=== PATIENT | female | born 1990 | race Caucasian/White ===

== ENCOUNTER 2018-09-16 16:35 | Inpatient (IN) | payer OTHER ==
[2018-09-16] MEDS ORDERED: AMPICILLIN SODIUM 2 GM VIAL ONE (16:56)
[2018-09-16] MEDS ORDERED: OXYTOCIN 30 UNITS in 0.9% NS 30 UNIT/500 ML INFUS.BAG IVPB ONE (16:57)
[2018-09-16] MEDS ORDERED: AMPICILLIN - 2 GM in SODIUM CHLORIDE 100 ML IVPB ONE (17:15)
[2018-09-16] MEDS ORDERED: TUBERCULIN PPD 5 TU/0.1ML SYRINGE (IN PATIENT USE ONLY) ID ONE ×2 (17:54→18:15)
[2018-09-16] MEDS ORDERED: DEXTROSE 5%-LACTATED RINGERS 1,000 ML IV SCH (18:15)
[2018-09-16] MEDS ORDERED: OXYTOCIN 30 UNITS in 0.9% NS 30 UNIT/500 ML INFUS.BAG IVPB SCH (18:15)
[2018-09-16 18:28] VITALS: BMI 30.7
--- NOTE | 2018-09-16 19:41 | HP ---
Past Medical History - Primary Care Physician PCP:: Lety Beltran - Admission Chief Complaint: 28yo P0 @ 40.3 wks with BPP 6/8 in the office, + FM, no LOF, irregular ctx, no VB. History of Present Illness: 1. 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 Weeks Gestation by Dates: 40.1 ...EDC by Dates: 09/15/18 ...EDC by Sono: 09/13/18 - Past Surgical History Past Surgical History: Yes: None Hx Myomectomy: No Hx Transabdominal Cerclage: No - Smoking History Smoking history: Never smoked Have you smoked in the past 12 months: No - Alcohol/Substance Use Hx Alcohol Use: No History of Substance Use: reports: None - Social History History of Recent Travel: No Home Medications - Allergies Allergies/Adverse Reactions: Allergies Allergy/AdvReac Type Severity Reaction Status Date / Time apple Allergy Mild Swelling Verified 05/20/18 19:31 peach Allergy Mild Swelling Verified 05/20/18 19:31 ibuprofen [From Advil] AdvReac Intermediate Swelling Verified 05/20/18 19:30 - Home Medications Home Medications: Ambulatory Orders Vit 108/Iron/Folic AC [ One Tablet] 1 each PO DAILY 05/20/18 Family Disease History - Family Disease History Family History: Unremarkable Review of Systems - Review of Systems Constitutional: reports: No Symptoms Eyes: reports: No Symptoms HENT: reports: No Symptoms Neck: reports: No Symptoms Cardiovascular: reports: No Symptoms Respiratory: reports: No Symptoms Gastrointestinal: reports: No Symptoms Genitourinary: reports: No Symptoms Breasts: reports: No Symptoms Reported Musculoskeletal: reports: No Symptoms Integumentary: reports: No Symptoms Neurological: reports: No Symptoms Endocrine: reports: No Symptoms Hematology/Lymphatic: reports: No Symptoms Psychiatric: reports: No Symptoms Physical Exam - Maternity Vital Signs: Vital Signs Temperature 98.7 F 09/16/18 19:00 Pulse Rate 95 H 09/16/18 19:00 Respiratory Rate 18 09/16/18 19:00 Blood Pressure 110/69 09/16/18 19:00 O2 Sat by Pulse Oximetry (%) Constitutional: Yes: Well Nourished, No Distress, Calm Eyes: Yes: WNL, Conjunctiva Clear, EOM Intact HENT: Yes: WNL, Atraumatic, Normocephalic Neck: Yes: WNL, Supple, Trachea Midline Cardiovascular: Yes: WNL, Regular Rate and Rhythm Lungs: Clear to auscultation Breast(s): Yes: WNL - Abdominal Exam/OB Fundal Height: 38 (EFW 6lb) Number of Fetuses: Single Presentation: Vertex Contractions: Yes Regularity: Irregular Intensity: Mild Monitor Mode: External Heart Rate (range): 130 Heart Rate Location: Midline Category: I Accelerations: Uniform Decelerations: None - Vaginal Exam/OB Vaginal Bleediing: No Speculum Exam: No Dilatation (cm): 3-4 Effacement (%): 50% Amniotic Membrane Status: Intact Presentation: Vertex/Position Station: -3 - Physical Exam Musculoskeletal: Yes: WNL Extremities: Yes: WNL Edema: No Integumentary: Yes: WNL ...Motor Strength: WNL Psychiatric: Yes: WNL, Alert, Oriented Assessment/Plan 28yo P0 @ 40.3wks BPP 6/8 in the office admitted for labor induction. Fetus with Category I tracing and requires no intervention. Patient is not in labor and has favorable cervix. We discussed the treatment options including expectant management awaiting spontaneous labor , Cervidil vs pitocin for labor induction. We discussed the risks and benefits of each option. The patient prefers to proceed with pitocin and monitor labor progress. I explained the risks of failed induction, tacysystole, distress , shoulder dystocia, and/or maternal trauma, hemorrhage, need for section, etc. The pt verbalized her understanding and requested to proceed. Ampicillin for GBS prophylaxis given
[2018-09-16 20:18] LABS: BASO % 0.5 % (0-2.0); EOS % 1.7 % (0-4.5); HEMATOCRIT 35.2 % (32.4-45.2); HEMOGLOBIN 11.6 GM/dL (10.7-15.3); LYMPH % 17.3 % (8-40); MCHC 32.9 g/dl (32.0-36.0); MEAN CELL VOLUME 94.3 fl (80-96); MEAN PLT VOLUME 9.4 fl (7.5-11.1); NEUT % 74.5 % (42.8-82.8); PLATELET COUNT 197 K/MM3 (134-434); RBC 3.73 M/mm3 (3.60-5.2); RDW 14.6 % (11.6-15.6); WHITE BLOOD COUNT 9.8 K/mm3 (4.0-10.0)
[2018-09-16 20:34] LABS: INR 0.94 (0.83-1.09); PROTHROMBIN TIME (PATIENT) 11.1 SEC (9.7-13.0)
[2018-09-16 20:37] LABS: ACTIVATED PTT 28.2 SECONDS (25.2-36.5)
[2018-09-16 20:42] LABS: ANION GAP 9 MMOL/L (8-16); BLOOD UREA NITROGEN 6 mg/dL (7-18); CALCIUM 8.4 mg/dL (8.5-10.1); CHLORIDE 106 mmol/L (98-107); CO2 25 mmol/L (21-32); CREATININE 0.6 mg/dL (0.55-1.3); GLUCOSE,RANDOM 87 mg/dL (74-106); POTASSIUM 4.3 mmol/L (3.5-5.1); SODIUM 140 mmol/L (136-145)
[2018-09-16] MEDS: AMPICILLIN - 1 GM in SODIUM CHLORIDE 100 ML IVPB SCH (21:00)
[2018-09-16] MEDS ORDERED: AMPICILLIN SODIUM 1 GM VIAL ONE (21:01)
[2018-09-16] MEDS ORDERED: FENTANYL/BUPIVACAINE/NS/PF - PCEA - 50 ML DISP.SYRIN EP ONE (21:45)
[2018-09-16] MEDS ORDERED: BUPIVACAINE HCL/PF 0.25% (2.5MG/ML) 10 ML VIAL ONE (21:48)
--- NOTE | 2018-09-16 23:12 | PN ---
Progress Note, Labor Vaginal Exam #1 Labor Exam Date: 09/16/18 Labor Exam Time: 23:00 Heart Rate (range): 150's no decels, + scalp stimulation Dilatation: 4 Effacement (%): 75% Amniotic Membrane Status: Bulging Presentation: Vertex/Position Station: -3 Remarks: ACOM, clear for further labor augmentation
[2018-09-17] MEDS ORDERED: NALOXONE HCL 0.4 MG/ML VIAL IVPUSH PRN (00:35)
[2018-09-17] MEDS ORDERED: FENTANYL/BUPIVACAINE/NS/PF - PCEA - 50 ML DISP.SYRIN EP ONE ×2 (00:35→05:16)
[2018-09-17] MEDS ORDERED: FENTANYL/BUPIVACAINE/NS/PF - PCEA - 50 ML DISP.SYRIN EP SCH (00:45)
[2018-09-17] MEDS: AMPICILLIN - 1 GM in SODIUM CHLORIDE 100 ML IVPB SCH ×3 (01:00→09:00)
[2018-09-17] MEDS ORDERED: AMPICILLIN SODIUM 1 GM VIAL ONE ×3 (01:00→08:49)
--- NOTE | 2018-09-17 04:30 | PN ---
Progress Note, Labor Vaginal Exam #2 Labor Exam Date: 09/17/18 Labor Exam Time: 04:15 Heart Rate (range): 150' moderate varriability Dilatation: 7 Effacement (%): 90% Amniotic Membrane Status: Ruptured Presentation: Vertex/Position Station: -2 Remarks: Adequate labor progress MF status reassuring continue monitoring
[2018-09-17] MEDS ORDERED: ELECTROLYTE-148 SOLN 1,000 ML IV SCH (05:30)
[2018-09-17] MEDS ORDERED: LIDOCAINE HCL 1% PRESERVATIVE FREE - 30ML VIAL ONE (07:43)
[2018-09-17] MEDS ORDERED: OXYTOCIN 20 UNITS in 0.9% NS 20 UNIT/1,000 ML INFUS.BAG IV ONE ×2 (07:43→10:49)
--- NOTE | 2018-09-17 07:51 | PN ---
Progress Note, Labor Vaginal Exam #3 Labor Exam Date: 09/17/18 Labor Exam Time: 07:40 Heart Rate (range): 150's few early decels noted, moderate varriabilit Dilatation: FD Effacement (%): 100 Amniotic Membrane Status: Ruptured Presentation: Vertex/Position Station: 0 Remarks: Patient has no desire to push Pitocin at 18Mu now will await passive head descent MF status reasuring
[2018-09-17] MEDS ORDERED: OXYTOCIN 20 UNITS in 0.9% NS 20 UNIT/1,000 ML INFUS.BAG IV SCH (10:35)
[2018-09-17] MEDS ORDERED: ACETAMINOPHEN 325 MG TABLET (FP) ONE (10:49)
[2018-09-17] MEDS: ACETAMINOPHEN 325 MG TABLET (FP) PO PRN ×3 (11:00→18:48)
[2018-09-17] MEDS ORDERED: METHYLERGONOVINE MALEATE 0.2 MG/1 ML AMP IM PRN (11:04)
[2018-09-17] MEDS ORDERED: IBUPROFEN 600 MG TABLET (FP) PO PRN ×2 (11:04→12:05)
[2018-09-17] MEDS ORDERED: BISACODYL 10 MG SUPP.RECT RC PRN (11:04)
[2018-09-17] MEDS ORDERED: BENZOCAINE 28 GM HEMORRHOIDAL OINTMENT TP PRN (11:04)
[2018-09-17] MEDS ORDERED: WITCH HAZEL 50% (TUCKS) 40 PAD/JAR PAD TP PRN (11:04)
--- NOTE | 2018-09-17 11:11 | PN ---
<Ho Esteban - Last Filed: 09/17/18 11:05> Delivery - Delivery Vaginal Delivery: Spontaneous Type of Anesthesia: Local, Epidural Episiotomy/Laceration: Midline (head on perinium, median episiotmy done , head OP delivered , cord around neck times 2 ,reduced ant and posterior shoulder with no difficulry, baby boy 9/9, third degree laceration , sphincto was approximated with interupted 20 chromic suture, episiotomy in 3 layers , rectal exam negative, good tone. ebl 500cc) Delivery, Single - Feeding Plan Initial Plan: Exclusive throughout hospitalization <Lety Beltran - Last Filed: 09/18/18 14:41> Delivery - Delivery Vaginal Delivery: No Problems, Spontaneous Type of Anesthesia: Local, Epidural Episiotomy/Laceration: Midline Delivery, Single - Stages of Labor Placenta: Yes: Spontaneous - Condition of Shipping Point Inspector/Call Center Nurse Present: No Gender: Female - 1 Minute Total Score: 9 5 Minutes Total Score: 9 Remarks - Remarks Remarks: cord around the neck x 1 Uncomplicated delivery of head and shoulders
[2018-09-17] MEDS ORDERED: D5W-LR W/ 20 UNITS OXYTOCIN 20 UNIT/1,000 ML INFUS.BAG IV SCH (11:15)
[2018-09-17 11:22] LABS: VENOUS PC02 38.7 mmHg (41-51); VENOUS PO2 31.2 mmHg (30-40)
[2018-09-17 11:25] LABS: ARTERIAL BLD GAS O2 SATURATION 46.9 % (95-98); ARTERIAL BLOOD GAS PCO2 48.8 mmHg (35-45)
[2018-09-17 11:32] LABS: VENOUS PH 7.37 (7.31-7.41)
[2018-09-17 11:34] LABS: ARTERIAL BLOOD GAS PO2 24.2 mmHg (80-105)
[2018-09-17] MEDS: oxyCODONE HCL 5 MG TABLET PO PRN ×2 (13:38→18:47)
[2018-09-17] MEDS: BENZOCAINE 20% 57 GM BOTTLE TP PRN (15:23)
[2018-09-17] MEDS: FERROUS SO4 325 MG TABLET (FP) PO SCH (21:44)
[2018-09-18] MEDS: oxyCODONE HCL 5 MG TABLET PO PRN ×4 (00:51→16:50)
[2018-09-18] MEDS: ACETAMINOPHEN 325 MG TABLET (FP) PO PRN ×4 (00:52→16:49)
[2018-09-18 08:10] LABS: BASO % 0.3 % (0-2.0); EOS % 1.2 % (0-4.5); HEMATOCRIT 27.5 % (32.4-45.2); HEMOGLOBIN 9.1 GM/dL (10.7-15.3); MCH 30.8 pg (25.7-33.7); MCHC 33.1 g/dl (32.0-36.0); MEAN PLT VOLUME 8.7 fl (7.5-11.1); MONO % 5.6 % (3.8-10.2); NEUT % 80.9 % (42.8-82.8); PLATELET COUNT 188 K/MM3 (134-434); RBC 2.95 M/mm3 (3.60-5.2); RDW 15.1 % (11.6-15.6); WHITE BLOOD COUNT 13.6 K/mm3 (4.0-10.0)
--- NOTE | 2018-09-18 08:37 | PN ---
Post Progress Note - Subjective Subjective: Patient without acute complaints. She has some perineal pain. Reports tolerating oral intake without nausea or vomiting. Ambulating without dizziness. Denies fevers or chills. Pain well controlled with oral pain medication. Pumping/breast feeding without issue. Passing flatus, no BM. Post Day: 1 Type of Delivery: Vital Signs: Vital Signs Temperature 97.8 F 09/18/18 06:00 Pulse Rate 90 09/18/18 06:00 Respiratory Rate 20 09/18/18 06:00 Blood Pressure 111/68 09/18/18 06:00 O2 Sat by Pulse Oximetry (%) 100 09/17/18 08:45 Breast Exam: Yes: Soft Uterus: Yes: Fundus Firm, Fundus below umbilicus, Non-tender Abdomen/GI: Yes: Abdomen soft, Passing flatus, Tolerating PO Lochia: Yes: Rubra Lochia, amount: Small Extremities: Yes: Calves non-tender, Edema (trace) Perineum: Yes: Episiotomy (repair intact) Activity: Ambulating - Labs Labs: CBC WBC 13.6 K/mm3 (4.0-10.0) H 09/18/18 07:42 RBC 2.95 M/mm3 (3.60-5.2) L 09/18/18 07:42 Hgb 9.1 GM/dL (10.7-15.3) L 09/18/18 07:42 Hct 27.5 % (32.4-45.2) L D 09/18/18 07:42 MCV 93.0 fl (80-96) 09/18/18 07:42 MCH 30.8 pg (25.7-33.7) 09/18/18 07:42 MCHC 33.1 g/dl (32.0-36.0) 09/18/18 07:42 RDW 15.1 % (11.6-15.6) 09/18/18 07:42 Plt Count 188 K/MM3 (134-434) 09/18/18 07:42 MPV 8.7 fl (7.5-11.1) 09/18/18 07:42 Absolute Neuts (auto) 11.0 K/mm3 (1.5-8.0) H 09/18/18 07:42 Neutrophils % 80.9 % (42.8-82.8) 09/18/18 07:42 Lymphocytes % 12.0 % (8-40) D 09/18/18 07:42 Monocytes % 5.6 % (3.8-10.2) 09/18/18 07:42 Eosinophils % 1.2 % (0-4.5) 09/18/18 07:42 Basophils % 0.3 % (0-2.0) 09/18/18 07:42 Nucleated RBC % 0 % (0-0) 09/18/18 07:42 Assessment/Plan 28yo P1 s/p , doing well stable, afebrile. Asymptomatic for anemia. care instructions reviewed. Continue routine care. Ambulation encouraged Discharge instruction reviewed.
--- NOTE | 2018-09-18 08:42 | DS ---
Physical Exam-ECONOMIC RESEARCH ASSISTANT Vital Signs: Vital Signs Temperature 97.8 F 09/18/18 06:00 Pulse Rate 90 09/18/18 06:00 Respiratory Rate 20 09/18/18 06:00 Blood Pressure 111/68 09/18/18 06:00 O2 Sat by Pulse Oximetry (%) 100 09/17/18 08:45 Constitutional: Yes: Well Nourished, No Distress, Calm Eyes: Yes: WNL, Conjunctiva Clear HENT: Yes: WNL, Atraumatic, Normocephalic Neck: Yes: WNL, Supple, Trachea Midline Cardiovascular: Yes: WNL, Regular Rate and Rhythm Respiratory: Yes: WNL, Regular, CTA Bilaterally Gastrointestinal: Yes: WNL, Normal Bowel Sounds, Soft ...Rectal Exam: Yes: Deferred Renal/: Yes: WNL Internal Exam Deferred: Yes ....Post : Yes: Uterus firm, Uterus non-tender, Slight lochia rubra Breast(s): Yes: WNL Musculoskeletal: Yes: WNL Extremities: Yes: WNL Edema: Yes Edema: LLE: Trace, RLE: Trace Integumentary: Yes: WNL Neurological: Yes: WNL, Alert, Oriented ...Motor Strength: WNL Psychiatric: Yes: WNL, Alert, Oriented Labs: CBC, BMP 09/18/18 07:42 09/16/18 19:30 Delivery - Delivery Vaginal Delivery: Spontaneous Type of Anesthesia: Local, Epidural Episiotomy/Laceration: Vaginal Extension/lac EBL (cc): 500 Delivery, Single - Stages of Labor Date 1st Stage Initiatied: 09/16/18 Time 1st Stage Initiated: 22:50 Date 2nd Stage Initiated: 09/17/18 Time 2nd Stage Initiated: 07:35 Date of Delivery: 09/17/18 Time of Delivery: 10:34 Time Placenta Delivered: 10:45 Placenta: Yes: Spontaneous, Normal Configuration - Condition of Waste Water 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 Labor induction. Procedures: Principal: Other Procedures: Repair episiotomy Hospital Course: Normal recovery Condition: Good - Instructions Diet, Activity, Other Instructions: Physical activity Resume your normal everyday activity as tolerated no heavy lifting or exercise until seen by your surgeon. You may walk unlimited janes of and climb stairs. You may resume driving the car when you feel safe and comfortable behind the wheel. No sexual activity as instructed. Wound care If you have a bandage, leave it on, and keep dry for 48-72 hours. After that time discard the outer bandage. If they are tapes on the skin under the out of bandage leave them in place. They will peel off in the next 7 to 10 days. Do Not Peel them off. You may shower the day after surgery. If there are tapes present on the skin, you may shower over them. Diet There are no dietary restrictions. Eat healthy, high-fiber foods. Drink 6 to 8 glasses of liquid each day. This will assist in keeping your bowels are regular. Pain management You may take Tylenol or acetaminophen or Ibuprofen (for example, Motrin, Advil etc.) from my pain prescription medication is ordered should be taken as prescribed for moderate to severe pain. Call MD for any of the following: Severe pain not relieved by medication Fever of 101 or higher Excessive bleeding or drainage on dressing Inability to urinate Referrals: Kaela Lucas MD [Staff Physician] - Disposition: HOME - Home Medications Comprehensive Discharge Medication List: Ambulatory Orders Vit 108/Iron/Folic AC [ One Tablet] 1 each PO DAILY 05/20/18
[2018-09-18] MEDS: BENZOCAINE 20% 57 GM BOTTLE TP PRN (08:52)
[2018-09-18] MEDS: PRENATAL VITAMINS W/ FOLIC ACID TABLET (FP) PO SCH (10:41)
[2018-09-18] MEDS: FERROUS SO4 325 MG TABLET (FP) PO SCH ×2 (10:41→22:25)
[2018-09-18] MEDS: SENNOSIDES/DOCUSATE COMBO (SENNA PLUS) TABLET (UD) PO PRN (22:27)
[2018-09-19] MEDS: oxyCODONE HCL 5 MG TABLET PO PRN ×2 (00:50→05:03)
[2018-09-19] MEDS: ACETAMINOPHEN 325 MG TABLET (FP) PO PRN ×2 (00:52→05:03)
--- NOTE | 2018-09-19 08:56 | PN ---
Post Progress Note - Subjective Subjective: Patient reports headache, neck pain Improved with PO meds. Passing flatus Reports tolerating oral intake without nausea or vomiting. Ambulating without dizziness. Denies fevers or chills. without difficulty. Post Day: 2 Type of Delivery: Vital Signs: Vital Signs Temperature 98.5 F 09/18/18 22:00 Pulse Rate 93 H 09/18/18 22:00 Respiratory Rate 18 09/18/18 22:00 Blood Pressure 115/71 09/18/18 22:00 O2 Sat by Pulse Oximetry (%) 100 09/18/18 09:00 Breast Exam: Yes: Soft Uterus: Yes: Fundus Firm Abdomen/GI: Yes: Abdomen soft, Passing flatus, Tolerating PO. No: Abdominal Distention, Tender Lochia: Yes: Rubra, Serosa Lochia, amount: Small Extremities: Yes: Calves non-tender, Edema (trace) Perineum: Yes: Episiotomy, Laceration Activity: Ambulating - Labs Labs: CBC WBC 13.6 K/mm3 (4.0-10.0) H 09/18/18 07:42 RBC 2.95 M/mm3 (3.60-5.2) L 09/18/18 07:42 Hgb 9.1 GM/dL (10.7-15.3) L 09/18/18 07:42 Hct 27.5 % (32.4-45.2) L D 09/18/18 07:42 MCV 93.0 fl (80-96) 09/18/18 07:42 MCH 30.8 pg (25.7-33.7) 09/18/18 07:42 MCHC 33.1 g/dl (32.0-36.0) 09/18/18 07:42 RDW 15.1 % (11.6-15.6) 09/18/18 07:42 Plt Count 188 K/MM3 (134-434) 09/18/18 07:42 MPV 8.7 fl (7.5-11.1) 09/18/18 07:42 Absolute Neuts (auto) 11.0 K/mm3 (1.5-8.0) H 09/18/18 07:42 Neutrophils % 80.9 % (42.8-82.8) 09/18/18 07:42 Lymphocytes % 12.0 % (8-40) D 09/18/18 07:42 Monocytes % 5.6 % (3.8-10.2) 09/18/18 07:42 Eosinophils % 1.2 % (0-4.5) 09/18/18 07:42 Basophils % 0.3 % (0-2.0) 09/18/18 07:42 Nucleated RBC % 0 % (0-0) 09/18/18 07:42 Assessment/Plan 28 yo PPD # 2 s/p , afebrile, vital signs stable, doing well 1. Patient with GARCIA - s/p anesthesia evaluation Will tx with tylenol/caffiene Will monitor sx If improvement, will DC home wtih PO meds; if not improved, will follow anesthesia recommendations 2. Patient encouraged to contact MD for: - Severe pain not controlled by oral pain medication - Fevers or chills - Nausea or vomiting, intolerance of oral intake - Incision redness, tenderness or discharge 3. Patient to follow up in office in 1-2 weeks for incision check, 4-6 weeks for visit
[2018-09-19 09:12] VITALS: BP 126/86; PULSE 87; TEMP 98.6
[2018-09-19] MEDS: PRENATAL VITAMINS W/ FOLIC ACID TABLET (FP) PO SCH (09:29)
[2018-09-19] MEDS: FERROUS SO4 325 MG TABLET (FP) PO SCH (09:29)
[2018-09-19] MEDS ORDERED: ACETAMINOPHEN/CAFFEINE/BUTALBITAL 1 TAB PO PRN (09:37)
[2018-09-19] MEDS: SENNOSIDES/DOCUSATE COMBO (SENNA PLUS) TABLET (UD) PO PRN (15:06)
== END 2018-09-19 18:00 | disposition home or self-care (01) | DRG 768 ==
LOC: JLDR 16:35 → J3W 09-17 13:12
PROVIDERS: ADMIT Obstetrics & Gynecology; ATTEND Obstetrics & Gynecology
PROC: 0DQR0ZZ Repair Anal Sphincter, Open Approach (ICD-10-PCS; principal; 2018-09-17)
PROC: 10E0XZZ Delivery of Products of Conception, External Approach (ICD-10-PCS; 2018-09-17)
DX: O48.0 Post-term pregnancy (principal); Z37.0 Single live birth; O70.20 Third degree perineal laceration during delivery, unspecified; O69.81X0 Labor and delivery complicated by cord around neck, without compression, not applicable or unspecified; Z3A.40 40 weeks gestation of pregnancy
CPT/HCPCS: 36415; 36600; 59409; 80048; 82803; 85025; 85610; 85730; 86593; 86850; 86900; 86901

== ENCOUNTER 2018-09-22 08:12 | Emergency (ER) | payer OTHER ==
[2018-09-22 08:19] VITALS: TEMP 98.4; BMI 28.0
--- NOTE | 2018-09-22 08:46 | PDOC ---
History of Present Illness - General Chief Complaint: Migraine Headache Stated Complaint: PAIN Time Seen by Provider: 09/22/18 08:46 History Source: Patient Exam Limitations: No Limitations - History of Present Illness Initial Comments: Pt is a 28 yo F, with no significant PMH, who is presenting with complaints of headache, neck and back stiffness since receiving her epidural last Sunday. Pt has had a headache since that time, and was discharged 09/19/18 with instructions to continue fluid intake and caffeine, as was prescribed percocet PO at home for pain. Pt states the pain is relieved minimally with percocet, but she continues to have pressure in her neck, and stiffness in her neck and back with standing, along with light sensitivity. Pt denies any fevers/chills, vision changes, syncope, chest pain, palpitations, SOB, nausea/vomiting, abdominal pain, urinary symptoms, diarrhea/constipation, or leg swelling. Social: Pt denies any cigarette, alcohol, or drug use. Pt denies any recent travel or sick contacts. Surgical: episiotomy repair 2/2 on 09/17, which she states is healing well. Family: no relevant history. 09/22/18 11:26 Past History - Travel Traveled outside of the country in the last 30 days: No Close contact w/someone who was outside of country & ill: No - Past Medical History Allergies/Adverse Reactions: Allergies Allergy/AdvReac Type Severity Reaction Status Date / Time apple Allergy Mild Swelling Verified 09/22/18 08:19 peach Allergy Mild Swelling Verified 09/22/18 08:19 ibuprofen [From Advil] AdvReac Intermediate Swelling Verified 09/22/18 08:19 Home Medications: Ambulatory Orders Vit 108/Iron/Folic AC [ One Tablet] 1 each PO DAILY 05/20/18 Docusate Sodium [Colace -] 100 mg PO DAILY #30 capsule 09/19/18 Oxycodone HCl/Acetaminophen [Percocet 5-325 mg Tablet] 1 tab PO Q6H #12 tablet MDD 4 09/19/18 Asthma: No Cancer: No Cardiac Disorders: No COPD: No Diabetes: No HTN: No Seizures: No Thyroid Disease: No - Suicide/Smoking/Psychosocial Hx Smoking History: Never smoked Have you smoked in the past 12 months: No Hx Alcohol Use: No Drug/Substance Use Hx: No Hx Substance Use Treatment: No Review of Systems - Review of Systems Able to Perform ROS?: Yes Is the patient limited Cameroonian proficient: No Constitutional: Yes: Weight Stable. No: Chills, Diaphoresis, Fever, Loss of Appetite, Malaise, Night Sweats, Weakness HEENTM: Yes: Other (light sensitivity). No: Blurred Vision, Recent change in vision, Double Vision, Nose Congestion, Tinnitus, Hearing Loss, Throat Pain, Throat Swelling Respiratory: No: Cough, Orthopnea, Shortness of Breath Cardiac (ROS): No: Chest Pain, Edema, Irregular Heart Rate, Lightheadedness, Palpitations, Syncope, Chest Tightness ABD/GI: No: Abdominal Distended, Constipated, Diarrhea, Nausea, Poor Appetite, Poor Fluid Intake, Vomiting : No: Burning, Dysuria, Pain, Urgency Musculoskeletal: Yes: Neck Pain, Joint Stiffness (neck stiffness). No: Back Pain, Joint Pain, Muscle Pain, Muscle Weakness Integumentary: No: Rash, Sweating Neurological: Yes: See HPI, Headache. No: Numbness, Paresthesia, Tingling, Weakness, Unsteady Gait, Ataxia, Dizziness Psychiatric: No: Sleep Pattern Change, Change in Appetite Endocrine: No: Increased Urine, Change in Weight Hematologic/Lymphatic: No: Anemia, Blood Clots, Easy Bleeding, Easy Bruising All Other Systems: Reviewed and Negative *Physical Exam - Vital Signs Last Vital Signs Temp Pulse Resp BP Pulse Ox 98.4 F 81 18 115/78 99 09/22/18 08:15 09/22/18 08:15 09/22/18 08:15 09/22/18 08:15 09/22/18 08:15 - Physical Exam Comments: Vitals stable, pt afebrile. Pt in NAD, normal body habitus. Pt alert and oriented x3. Diminished flexion, extension, and rotation of neck 2/2 to pt discomfort. No midline spinal tenderness to palpation, no crepitus or step-offs, no areas of erythema nor fluctuance. machine installer generally intact, muscular strength and sensation intact. Head normocephalic, atraumatic. Eyes PERRLA (3 mm), EOMI. Oropharynx without erythema or exudates, no LAD b/l. No nasal congestion, hearing intact. Clear heart sounds, S1/S2, no JVD, b/l pedal edema, or heart murmur. Clear lung sounds, no respiratory distress, wheezes, crackles, or accessory muscle use. No abdominal or CVA tenderness to palpation, no rebound, no guarding. Abdomen soft, non-distended, and with normoactive bowel sounds. Skin without jaundice or rash. 09/22/18 10:36 09/22/18 11:27 ED Treatment Course - LABORATORY CBC & Chemistry Diagram: 09/22/18 09:41 09/22/18 09:41 Medical Decision Making - Medical Decision Making Pt was seen at bedside, also will be seen by attending Dr. Appiah. Pt presenting with complaints of headache, neck and back stiffness since receiving her epidural last Sunday09/17/18. Pt has had a headache since that time, and was discharged 09/19/18 with instructions to continue fluid intake and caffeine, as was prescribed percocet PO at home for pain. Pt states the pain is relieved minimally with percocet, but she continues to have pressure in her neck, and stiffness in her neck and back with standing, along with light sensitivity. Pt denies any fevers/chills, vision changes, syncope, chest pain, palpitations, SOB , nausea/vomiting, abdominal pain, urinary symptoms, diarrhea/constipation, or leg swelling. Considering headache 2/2 to epidural vs migraine vs meningitis vs venous thrombosis. Pt just delivered her baby, could still be hypercoagulable, will test coags and bloodwork. Pt afebrile, less likely infectious and more likely due to pain after the epidural. Ordered work-up including CBC, CMP, coags. Provided 2 mg IV versed and 1 g ofirmev for improvement of discomfort and pain from the epidural patch procedure. Will continue to reassess pt and monitor for symptomatic improvement. Epidural patch procedure performed by foxing closer. Pt advised to lie flat for 1 hour and we will reassess her pain for improvement after the procedure. 09/22/18 10:36 CBC: WBC 10.8, H/H stable -- pt afebrile, could be reactive elevation of WBC CMP and coags WNL Pt starting to feel better after tylenol and procedure. Will continue to reassess. 09/22/18 11:12 Pt feeling better after epidural blood patch procedure, able to tolerate PO intake in ED. Vitals remained stable. machine installer remain intact, no weakness or tingling in extremities. Pt can be discharged to home with follow-up. Pt advised to follow-up with PCP and OB in 1-2 days. Strict return precautions provided with pt understanding. Pt advised to continue taking plenty of fluids and caffeine at home. electro mechanical assembler also saw the pt, who agrees with the plan. 09/22/18 12:36 *DC/Admit/Observation/Transfer Diagnosis at time of Disposition: Epidural anesthesia-induced headache during labor and delivery - Discharge Dispostion Disposition: HOME Condition at time of disposition: Improved Decision to Admit order: No - Referrals Referrals: Yoanna Kendall RES [Primary Care Provider] - Kaela Lucas MD [Staff Physician] - - Patient Instructions Printed Discharge Instructions: DI for Epidural Blood Patch, DI for Post- Spinal Puncture Headache Additional Instructions: You were seen in the ER today for a blood patch to help with your headache after receiving an epidural during labor. The results of your labs today were normal. Please follow-up with your primary care doctor and OB within 1-2 days to discuss your visit and make sure your symptoms have improved. Please continue to take plenty of fluids and caffeine as we discussed. Please return to the ER if you have any worsening pain, development of fevers or chills, difficulty with walking, tingling or weakness in your arms or legs, loss of consciousness, inability to tolerate food or fluids, or any other concerns. - Post Discharge Activity
[2018-09-22 09:54] LABS: BASO % 0.4 % (0-2.0); HEMATOCRIT 30.2 % (32.4-45.2); HEMOGLOBIN 10.1 GM/dL (10.7-15.3); LYMPH % 13.2 % (8-40); MCH 31.6 pg (25.7-33.7); MCHC 33.4 g/dl (32.0-36.0); MEAN CELL VOLUME 94.4 fl (80-96); MEAN PLT VOLUME 7.6 fl (7.5-11.1); NEUT % 79.4 % (42.8-82.8); PLATELET COUNT 327 K/MM3 (134-434); RDW 15.2 % (11.6-15.6); WHITE BLOOD COUNT 10.8 K/mm3 (4.0-10.0)
[2018-09-22] MEDS ORDERED: MIDAZOLAM HCL 2 MG/2 ML SINGLE DOSE VIAL IVPUSH ONE (09:55)
[2018-09-22] MEDS ORDERED: MIDAZOLAM HCL 2 MG/2 ML SINGLE DOSE VIAL ONE (09:56)
[2018-09-22 10:18] LABS: INR 0.97 (0.83-1.09); PROTHROMBIN TIME (PATIENT) 11.5 SEC (9.7-13.0)
[2018-09-22 10:20] LABS: ALBUMIN 2.4 g/dl (3.4-5.0); ALK PHOS 114 U/L (45-117); ANION GAP 4 MMOL/L (8-16); BILIRUBIN,TOTAL 0.2 mg/dL (0.2-1); BLOOD UREA NITROGEN 10 mg/dL (7-18); CHLORIDE 110 mmol/L (98-107); CO2 27 mmol/L (21-32); CREATININE 0.6 mg/dL (0.55-1.3); GLUCOSE,RANDOM 72 mg/dL (74-106); MAGNESIUM 1.9 mg/dL (1.8-2.4); SGOT/AST 20 U/L (15-37); SGPT/ALT 30 U/L (13-61); SODIUM 141 mmol/L (136-145); TOT PROT 5.6 g/dl (6.4-8.2)
[2018-09-22] MEDS ORDERED: ACETAMINOPHEN 1000 MG/100 ML VIAL (NON FORMULARY) IVPB ONE (10:33)
[2018-09-22] MEDS ORDERED: ACETAMINOPHEN INJECTION 100 ML IVPB ONE (10:36)
--- NOTE | 2018-09-22 10:59 | PN ---
Progress Note, Physician Chief Complaint: headache lasting several days History of Present Illness: s/p with epidural analgesia complicated by dural puncture, patient with headache not relieved by fluids , caffeine, or rest. worse with standing or sitting up. Better with laying down. No nausea or vomiting, fevers, chills, or other pathology suggestive of infectious etiology. No neurological deficits. - Objective Vital Signs: Vital Signs Temperature 98.4 F 09/22/18 08:15 Pulse Rate 82 09/22/18 10:17 Respiratory Rate 18 09/22/18 08:15 Blood Pressure 133/88 09/22/18 10:17 O2 Sat by Pulse Oximetry (%) 99 09/22/18 08:15 Constitutional: Yes: Mild Distress Cardiovascular: Yes: WNL Respiratory: Yes: WNL Gastrointestinal: Yes: WNL Labs: CBC, BMP 09/22/18 09:41 09/22/18 09:41 INR, PTT INR 0.97 (0.83-1.09) 09/22/18 09:41 Assessment/Plan Headache characteristic of post dural puncture headache. offered conservative treatment and epidural blood patch and explained options. Patient agreed to blood patch. Will perform in the ED
--- NOTE | 2018-09-22 11:04 | PN ---
Progress Note (short form) - Note Progress Note: Procedure Note: Patient complained of headache characteristic of post dural puncture headache. Patient seated, betadyne prep x3 with sterile drape. right arm prepped with chlorohexidine, 17guage tuohy at L3-4 interspace used with loss of resistance at 5cm, 30ml of blood obtained from right AC in sterile fashion, blood slowly injected into epidural space until pain appreciated by patient, a total of 20ml injected, patient placed supine and complained of back pain severe at first but subsided within 10 minutes, no neurological deficits, AVSS. will reevaluate in an hour to assess the efficacy of the blood patch.
--- NOTE | 2018-09-22 11:21 | PDOC ---
Attending Attestation - Resident Resident Name: Daniela Villeda - ED Attending Attestation I have performed the following: I have examined & evaluated the patient, The case was reviewed & discussed with the resident, I agree w/resident's findings & plan, Exceptions are as noted - HPI HPI: 09/22/18 11:15 28 F with no PMH presenting to ED with headache since 09/16. Pt had vaginal delivery on that date, was given epidural. Now complains of global headache that is worse with sitting up, relieved by lying flat, constant since the date of her delivery. Pt denies N/V. Denies F/C. Denies neck stiffness. Denies any weakness/numbness in any extremity. Denies dizziness or confusion. - Physicial Exam PE: 09/22/18 11:21 GENERAL: Awake, alert, and fully oriented, in no acute distress. HEAD: No signs of trauma EYES: PERRLA, EOMI, sclera anicteric, conjunctiva clear ENT: Auricles normal inspection, hearing grossly normal, nares patent, oropharynx clear without exudates. Moist mucosa NECK: Nontender, no stepoffs, Normal ROM, supple, no lymphadenopathy, JVD, or masses LUNGS: Breath sounds equal, clear to auscultation bilaterally. No wheezes, and no crackles HEART: Regular rate and rhythm, normal S1 and S2, no murmurs, rubs or gallops ABDOMEN: Soft, nontender, normoactive bowel sounds. No guarding, no rebound. No masses EXTREMITIES: Normal range of motion, no edema. No clubbing or cyanosis. No cords, erythema, or tenderness NEUROLOGICAL: Cranial nerves II through XII intact. 5/5 strength and sensation in all extremities, Normal speech, normal gait, normal cerebellar function SKIN: Warm, Dry, normal turgor, no rashes or lesions noted. - Medical Decision Making 09/22/18 11:21 28 F with post-epidural headache. No fevers/neck stiffness to suggest meningitis. Pt with no neuro deficits, making venous sinus thrombosis unlikely. - Labs - IVF, tylenol - Anesthesia in ED to perform blood patch 09/22/18 12:40 Labs wnl Pt reassessed after blood patch Significant improvement in pain. Pt is well appearing, with normal vitals. Clinically stable for DC at this time. I discussed the physical exam findings, ancillary test results and final diagnoses with the patient. I answered all of the patient's questions. The patient was satisfied with the care received and felt comfortable with the discharge plan and treatment plan. The patient agrees to follow up with the primary care physician within 24-72 hours.
[2018-09-22 12:43] VITALS: BP 130/95; PULSE 78
== END 2018-09-22 12:43 | disposition home or self-care (01) ==
LOC: JER 08:12
PROC: 3E033NZ Introduction of Analgesics, Hypnotics, Sedatives into Peripheral Vein, Percutaneous Approach (ICD-10-PCS; principal; 2018-09-22)
PROC: 3E033NZ Introduction of Analgesics, Hypnotics, Sedatives into Peripheral Vein, Percutaneous Approach (ICD-10-PCS; 2018-09-22)
PROC: 3E0S3GC Introduction of Other Therapeutic Substance into Epidural Space, Percutaneous Approach (ICD-10-PCS; 2018-09-22)
DX: O90.89 Other complications of the puerperium, not elsewhere classified (principal); O74.5 Spinal and epidural anesthesia-induced headache during labor and delivery
CPT/HCPCS: 36415; 80053; 83735; 85025; 85610; 99283-25; J0131